=== PATIENT | female | born 1950 | race Asian ===

== ENCOUNTER → 2017-05-10 | Outpatient (CLI) | payer MEDICARE, OTHER, MEDICAID ==
[~2017-05-10] MED LIST: ANAS1TAB PO; BISA10SU65 PR; CAPE500T24 PO; CINN500C2 PO; DEXA4TAB; EXEM25TA2 PO; FISH1CAP PO; HYDR-3276; HYDR2TAB29 PO; LEVO750T26 PO; LOSA1TAB17 PO; MORP100S3 PO; MORPHINE PO; OMEP40CA6; ONDA4TAB13 PO; ONDA8TAB12 PO; ONDA8TAB9; OXYC10TA47 PO; OXYC5CAP2 PO; OXYC5TAB3 PO; POLY17PO5 PO; POTA99TA14 PO; PROC10TA PO; SENN1TAB7 PO; TEMA15CA6 PO; [UNRECOGNIZED DRUG - OTHER] PO; calcium PO; ginger PO; turmeric PO
== END | disposition home or self-care (01) ==
LOC: PETCFH 08:09
PROVIDERS: ATTEND Internal Medicine Hematology & Oncology
DX: C50.912 Malignant neoplasm of unspecified site of left female breast (principal); C78.7 Secondary malignant neoplasm of liver and intrahepatic bile duct; C79.51 Secondary malignant neoplasm of bone
CPT/HCPCS: 78815; A9552

== ENCOUNTER 2017-06-03 07:43 | Day surgery (SDC) | payer MEDICARE, OTHER, MEDICAID ==
[~2017-06-03] VITALS: Ht 160 cm; Wt 50.2 kg
[~2017-06-03 07:43] MED LIST changes: -LOSA1TAB17 PO; +LOSA1TAB22 PO
[2017-06-03 08:20] VITALS: BP 114/76
[2017-06-03] MEDS ORDERED: CEFAZOLIN PMX 1GM/50ML 50 ML IV ONE (08:30)
[2017-06-03] MEDS ORDERED: SODIUM CHLORIDE 0.9% 1,000 ML IV SCH (08:30)
[2017-06-03] MEDS ORDERED: PLEASE ENTER HEIGHT AND WEIGHT MC SCH (08:30)
[2017-06-03] MEDS ORDERED: LIDOCAINE 1%, 20ML ONE (08:46)
[2017-06-03] MEDS ORDERED: MIDAZOLAM 1 MG/ML, 5ML ONE (09:10)
[2017-06-03] MEDS ORDERED: FENTANYL PF 100 MCG/2ML ONE ×2 (09:10)
== END 2017-06-03 11:55 ==
LOC: OUT 07:43
PROVIDERS: ATTEND Internal Medicine Hematology & Oncology
DX: Z45.2 Encounter for adjustment and management of vascular access device (principal); C50.912 Malignant neoplasm of unspecified site of left female breast
CPT/HCPCS: 36561; 76937; 77001; 99156; 99157; C1788; J0690; J1642; J2250; J3010; J3490; J7030

== ENCOUNTER 2017-07-11 12:23 | Inpatient (IN) | payer MEDICARE, OTHER, MEDICAID ==
[2017-07-11] VITALS (9 sets, daily range): BP systolic 104–124; BP diastolic 63–78
[~2017-07-11] VITALS: Ht 160 cm; Wt 52.0 kg
[2017-07-11] MEDS ORDERED: SODIUM CHLORIDE 0.9% 1,000 ML IV ONE (12:47)
[2017-07-11] MEDS ORDERED: SODIUM CHLORIDE FLUSH 10ML SYR IVF ONE (13:00)
[2017-07-11] MEDS ORDERED: ONDANSETRON 2MG/ML, 2ML IVPush ONE (13:00)
[2017-07-11] MEDS ORDERED: ONDANSETRON 2MG/ML, 2ML ONE (13:10)
[2017-07-11] MEDS ORDERED: MORPHINE SULFATE 4 MG/ML, 1ML ONE (13:10)
[2017-07-11] MEDS: MORPHINE SULFATE 4 MG/ML, 1ML IVPush PRN ×2 (13:17→14:48)
[2017-07-11 13:24] LABS: WHITE BLOOD COUNT 11.3 x10^3/uL (3.4-10)
[2017-07-11 13:26] LABS: HEMATOCRIT 15.1 % (34.6-47.8); HEMOGLOBIN 5.1 g/dL (11.7-16.4)
[2017-07-11 13:29] LABS: BLOOD UREA NITROGEN 28 mg/dL (7-18)
[2017-07-11 13:33] LABS: ASPARTATE AMINO TRANSFERASE 592 U/L (15-37)
[2017-07-11 13:38] LABS: DIFF TOTAL CELLS COUNTED 100 CELL DIFF
[2017-07-11 13:40] LABS: ANISOCYTOSIS 2+; POLYCHROMASIA 1+
[2017-07-11 13:41] LABS: HYPOCHROMIA 3+
[2017-07-11 13:43] LABS: VERIFY COUNTS? YES
[2017-07-11 13:44] LABS: SCHISTOCYTES 1+
[2017-07-11 13:46] LABS: MICROCYTOSIS 1+
[2017-07-11] MEDS ORDERED: OMNIPAQUE 350 MG/ML, 100ML BOTTLE ONE (14:16)
[2017-07-11] MEDS ORDERED: ONDANSETRON 2MG/ML, 2ML IVPush PRN (16:30)
[2017-07-11] MEDS ORDERED: ACETAMINOPHEN 325 MG TABLET PO PRN (16:30)
[2017-07-11] MEDS: LACTATED RINGERS 1,000 ML IV SCH (21:12)
[2017-07-11] MEDS: DEXAMETHASONE 4 MG/ML, 1ML IVPush SCH (21:34)
[2017-07-11 21:43] LABS: PROTIME 26.5 Seconds (9.6-11.5)
[2017-07-12 01:44] VITALS: BP 107/62
[2017-07-12] MEDS: DEXAMETHASONE 4 MG/ML, 1ML IVPush SCH ×4 (03:25→21:10)
[2017-07-12 05:03] LABS: HEMATOCRIT 26.9 % (34.6-47.8); HEMOGLOBIN 9.4 g/dL (11.7-16.4); WHITE BLOOD COUNT 10.3 x10^3/uL (3.4-10)
[2017-07-12 05:12] LABS: ASPARTATE AMINO TRANSFERASE 666 U/L (15-37); BLOOD UREA NITROGEN 25 mg/dL (7-18)
[2017-07-12 06:40] VITALS: BP 117/73
[2017-07-12 07:07] LABS: DIFF TOTAL CELLS COUNTED 100 CELL DIFF
[2017-07-12 07:09] LABS: ANISOCYTOSIS 2+; MICROCYTOSIS 1+; POLYCHROMASIA 1+; VERIFY COUNTS? YES
[2017-07-12] MEDS: LACTATED RINGERS 1,000 ML IV SCH ×2 (10:54→23:25)
[2017-07-12 13:59] VITALS: BP 112/58
[2017-07-12 19:12] VITALS: BP 133/86
[2017-07-13 01:10] VITALS: BP 126/78
[2017-07-13] MEDS: DEXAMETHASONE 4 MG/ML, 1ML IVPush SCH ×2 (03:12→09:42)
[2017-07-13 06:49] VITALS: BP 131/84
[2017-07-13] MEDS: HYDROmorphone 2 MG/ML, 1ML IVPush PRN ×2 (10:13→13:37)
[2017-07-13] MEDS: LACTATED RINGERS 1,000 ML IV SCH (12:31)
== END 2017-07-13 16:44 | disposition hospice, home (50) | DRG 441 ==
LOC: ED 15:39 → EDIP 15:40 → 3NW 17:21
PROVIDERS: ADMIT Hospitalist; ATTEND Hospitalist
PROC: 30233N1 Transfusion of Nonautologous Red Blood Cells into Peripheral Vein, Percutaneous Approach (ICD-10-PCS; principal; 2017-07-11)
PROC: 0T9B70Z Drainage of Bladder with Drainage Device, Via Natural or Artificial Opening (ICD-10-PCS; 2017-07-11)
DX: K72.00 Acute and subacute hepatic failure without coma (principal); D65 Disseminated intravascular coagulation [defibrination syndrome]; E43 Unspecified severe protein-calorie malnutrition; J90 Pleural effusion, not elsewhere classified; C79.51 Secondary malignant neoplasm of bone; C78.7 Secondary malignant neoplasm of liver and intrahepatic bile duct; R18.8 Other ascites; C50.919 Malignant neoplasm of unspecified site of unspecified female breast; Z66 Do not resuscitate; G62.9 Polyneuropathy, unspecified; D64.9 Anemia, unspecified; I10 Essential (primary) hypertension; M54.9 Dorsalgia, unspecified; R00.0 Tachycardia, unspecified; D64.81 Anemia due to antineoplastic chemotherapy; D63.0 Anemia in neoplastic disease; Z51.5 Encounter for palliative care; Z79.810 Long term (current) use of selective estrogen receptor modulators (SERMs); Z82.5 Family history of asthma and other chronic lower respiratory diseases; Z85.3 Personal history of malignant neoplasm of breast; Z90.10 Acquired absence of unspecified breast and nipple
CPT/HCPCS: 36415; 36430; 74177; 80053; 81003; 83010; 83615; 83690; 83735; 84100; 85025; 85049; 85379; 85384; 85610; 85730; 86850; 86900; 86923; 96361; 96374; 96375; 96376; J1100; J1170; J2405; Q9967; J7030; J7120; P9016